=== PATIENT | female | born 1965 | race Caucasian/White ===

== ENCOUNTER → 2018-01-29 | Outpatient (CLI) | payer MEDICAID ==
--- NOTE | 2018-01-30 14:16 | EKG ---
Date Performed: 01/29/2018 Time Performed: 15:45:23 PTAGE: 52 years EKG: Sinus rhythm POSSIBLE RIGHT VENTRICULAR CONDUCTION DELAY BORDERLINE ECG NO PREVIOUS TRACING DOCTOR: Jose Cadet Interpretating Date/Time 01/30/2018 14:15:16
== END ==
LOC: HCAV 15:28
DX: Z13.6 Encounter for screening for cardiovascular disorders (principal); R94.31 Abnormal electrocardiogram [ECG] [EKG]
CPT/HCPCS: 93005